=== PATIENT | female | born 1950 | race Asian ===

== ENCOUNTER → 2017-02-01 | Outpatient (CLI) | payer OTHER | LOC: BMCIMAGING 16:00 | PROVIDERS: ATTEND Internal Medicine | DX: Z03.89 Encounter for observation for other suspected diseases and conditions ruled out (principal) ==

== ENCOUNTER 2019-03-22 17:47 | Emergency (ER) | payer OTHER, MEDICARE ==
--- NOTE | 2019-03-22 18:34 | EDPHY ---
H & P Stated Complaint: multiple various & changing: R facial tight, R arm tingling, bilat feet swe Source: Patient Exam Limitations: No limitations - Medical/Surgical History Hx Asthma: Yes Hx Chronic Respiratory Disease: No Hx Diabetes: Yes Hx Cardiac Disease: No Hx Renal Disease: No Hx Cirrhosis: Yes Hx Alcoholism: No Hx HIV/AIDS: No Hx Splenectomy or Spleen Trauma: No Other PMH: DMII (non-insulin), ROSEMARIE'S, TIAs, JAW SURGERY, PARTIAL HYSTERECTOMY, COLON RESECTION FOR DIVERTICULITIS, PTSD & DEPRESSION, FIBROMYALGIA, CHRONIC FATIGUE, HTN, depression - Social History Smoking Status: Never smoked Time Seen by Provider: 03/22/19 18:34 HPI/ROS: HPI: This is a 68 year old female who presents with Chief Complaint: Vaccine reaction Location: Body Quality: Vaccine reaction Duration: Several days Signs and Symptoms: no shortness of breath at rest, no shortness of breath on exertion, no cough, no chest pain, no palpitations, no lower extremity edema, no wheezing, no orthopnea, no paroxysmal nocturnal dyspnea, no fever, no injury/ trauma, no hemoptysis, no carpal pedal spasms Timing: Gradual onset, constant Severity: Moderate Context: Patient presents with multiple various & changing complaints since she received her pneumococcal vaccine on Saturday, approximately 2 days ago. She complains of a local reaction in her left upper arm where the vaccine was administrated. She complains that the left upper arm is tight and swollen. She denies any redness, warmth, discharge. She reports that she feels pain in her left upper arm. She also complains that her right side of her face feels tight and bilateral feet are swelling. She is requesting that her "lymphatic system being tested." She denies any fever, neck stiffness, chest pain, shortness of breath, recent long distance travel. Patient reports that she always has "low-sodium." Modifying Factors: Ice application for the last 48 hr Comment: ROS: A comprehensive 10 system review of systems is otherwise negative aside from elements mentioned in the history of present illness. MEDICAL/SURGICAL/SOCIAL HISTORY: Medical history: DMII (non-insulin), ROSEMARIE'S, TIAs, PTSD & DEPRESSION, FIBROMYALGIA, CHRONIC FATIGUE, HTN, chronic hyponatremia Surgical history: JAW SURGERY, PARTIAL HYSTERECTOMY, COLON RESECTION FOR DIVERTICULITIS Social history: Never smoked, retired. CONSTITUTIONAL: Extremely well-appearing [place] elderly female, son at bedside , awake and alert, no obvious distress HEENT: Atraumatic and normocephalic, PERRL, EOMI. Wearing glasses. Nares patent; no rhinorrhea; no nasal mucosal edema. Tympanic membranes clear. Oropharynx clear, no exudate and moist pink mucosa. Airway patent. No lymphadenopathy. No meningismus. Cardiovascular: Normal S1/S2, regular rate, regular rhythm, without murmur rub or gallop. PULMONARY/CHEST: Symmetrical and nontender. Clear to auscultation bilaterally. Good air movement. No accessory muscle usage. ABDOMEN: Soft, nondistended, nontender, no rebound, no guarding, no peritoneal signs, no masses or organomegaly. No CVAT. EXTREMITIES: 2/2 pulses, strength 5/5, left upper arm is the same size is a right upper arm; no erythema, warmth, tenderness appreciated. Left SHOULDER: Arc test abduction to 180, abduction to 45, horizontal flexion 130, horizontal extension to 45, deltoid strength 5/5. No pain with Neer test/ Francis test (impingement). No Tenderness to palpation over AC joint. no clavicle deformity appreciated. no deformities, no clubbing, no cyanosis or edema. NEUROLOGICAL: no focal neuro deficits. GCS 15. Cranial nerves 2-12 grossly intact. Normal Romberg testing. No pronator drift. SKIN: Warm and dry, no erythema. no rash. Good capillary refill. (Yaritza Kong) Constitutional: Initial Vital Signs Temperature (C) 36.7 C 03/22/19 17:54 Heart Rate 78 03/22/19 17:54 Respiratory Rate 16 03/22/19 17:54 Blood Pressure 153/80 H 03/22/19 17:54 O2 Sat (%) 97 03/22/19 17:54 O2 Delivery Mode Room Air Allergies/Adverse Reactions: Influenza Virus Vaccines [Influenza Virus Vaccine] Allergy (Severe, Verified 05/11 14:42) Swelling/neck,face,throat Penicillins Allergy (Severe, Verified 08/03/15 14:42) Hives Tetanus Toxoid,Fl *RETIRED-07/07/12 [Tetanus Toxoid,Fluid] Allergy (Severe, Verified 08/03/15 14:42) Swelling/neck,face,throat iodine Allergy (Verified 12/07/15 14:22) Anaphylaxis pneumococcal vaccine Allergy (Verified 03/22/19 17:50) Home Medications: Medication Instructions Recorded Levothyroxine [Synthroid 125 mcg 125 mcg PO Q2D@06 12/07/15 (*)] Magnesium Oxide [Magnesium Oxide 400 mg PO DAILY 12/07/15 400 mg (*)] Glimepiride [Amaryl 2 MG (*)] 4 mg PO BIDMEAL #0 tab 12/09/15 Metoprolol Succinate Xr [Toprol Xl 25 mg PO DAILY #0 tab 12/09/15 25 mg (*)] [place]-3 Fatty Acids [Fish Oil 1000 1,000 mg PO DAILY #0 cap 12/09/15 mg (*)] Propranolol HCl [Inderal 10mg (*)] 10 mg PO HS #0 tab 12/09/15 Fluticasone/Salmeter 100/50Mcg 2 - 3 puffs IH BID 10/19/16 [Advair 100/50 (*)] Levothyroxine [Synthroid 112 mcg 112 mcg PO Q2D@10/19/16 (*)] Sitagliptin Phos/Metformin HCl 1 each PO BID 10/19/16 [Janumet 50-1,000 mg Tablet] ALPRAZolam [Xanax 0.25 MG (*)] 0.25 mg PO DAILY PRN #30 tab 10/20/16 Albuterol [Proventil Inhaler HFA 2 - 3 puffs IH BID #1 mdi 10/20/16 (*)] Albuterol [Proventil Neb] 3 ml IH QID PRN #100 deyvial 10/20/16 Clopidogrel Bisulfate [Plavix] 75 mg PO DAILY #30 tablet 10/20/16 Diclofenac Sodium 1% [Voltaren Gel 1 pau TP DAILY PRN #0 tube 10/20/16 (*)] Diclofenac Sodium [Voltaren Gel 1 pau TP DAILY PRN #1 tube 10/20/16 (*)] Escitalopram Oxalate [Lexapro] 5 mg PO DAILY #30 tablet 10/20/16 Lisinopril 5 mg PO DAILY #30 tablet 10/20/16 Nebulizer and Compressor [Comp-Air 1 each MC DAILY #1 each 10/20/16 Nebulizer System] Nitroglycerin 0.3 mg SL DAILY PRN #20 tab.subl 10/20/16 clonazePAM [Clonazepam] 0.25 mg PO DAILY PRN #30 tab.rapdis 10/20/16 Medical Decision Making - Diagnostics Imaging Results: Imaging Impressions Extremity Venous Study 03/22/19 18:43 Impression: No evidence of intraluminal thrombus venous system left upper extremity. Findings discussed with Yaritza Kong PAC at 19:46 hour, 03/22/2019. ED Course/Re-evaluation: I also saw this patient in the emergency department. I reviewed the history of pneumococcal vaccine 2 days ago. She tells me she has had tingling to right hand and right leg as well as both feet. She tells me she would like her lymph examined. By my exam she has some tenderness to the left biceps area. Mild erythema. No obvious evidence of abscess clinically. Neurologic exam shows speech to be normal. Cranial nerves intact. There is no pronator drift. [id number] is normal. Gait is normal. (Ru Hardy) Vital signs reviewed and show mildly elevated blood pressure upon arrival. No systemic signs for concern of sepsis or SIRS protocol. Left upper extremity ultrasound ordered as well as IV access and laboratory studies 0: Notified by RN and outside plant technician that patient is refusing laboratory studies and ultrasound. Requesting for physician visit and examination. 0: Dr. Hardy evaluated patient recommends ESR and CRP laboratory studies be added. 1946: Called by radiologist, Dr. Terrazas, who reports left upper extremity ultrasound shows no DVT, no superficial thrombosis, no hematoma, no edema. 2014: Laboratory studies reviewed. Microcytic anemia noted, platelet count 145 K, glucose 267 no signs of DKA, ESR 33, CRP 38, sodium 129 which is a comparable value in September as well as in December of 2016, creatinine 0.5 No signs of neurovascular compromise/tenting of skin/compartment syndrome/ extremities and joints examined above and below area of concern and are neurovascularly intact/cellulitis/abscess. This patient was seen under the supervision of my secondary supervising physician. I evaluated and cared for this patient with attending. (Yaritza Kong) Differential Diagnosis: Differential diagnosis includes but is not limited to DVT, thrombophlebitis, vaccine reaction, cellulitis, abscess. (Yaritza Kong) - Data Points Laboratory Results: Laboratory Results 03/22/19 19:40 03/22/19 19:40 03/22/19 03/22/19 19:40 19:40 WBC 8.79 10^3/uL 10^3/uL (3.80-9.50) RBC 4.17 10^6/uL L 10^6/uL (4.18-5.33) Hgb 11.2 g/dL L g/dL (12.6-16.3) Hct 32.3 % L % (38.0-47.0) MCV 77.5 fL L fL (81.5-99.8) MCH 26.9 pg L pg (27.9-34.1) MCHC 34.7 g/dL g/dL (32.4-36.7) RDW 13.6 % % (11.5-15.2) Plt Count 145 10^3/uL L 10^3/uL (150-400) MPV 11.6 fL fL (8.7-11.7) Neut % (Auto) 64.9 % % (39.3-74.2) Lymph % (Auto) 24.9 % % (15.0-45.0) [place] % (Auto) 7.1 % % (4.5-13.0) Eos % (Auto) 2.5 % % (0.6-7.6) Baso % (Auto) 0.3 % % (0.3-1.7) Nucleat RBC Rel Count 0.0 % % (0.0-0.2) Absolute Neuts (auto) 5.70 10^3/uL 10^3/uL (1.70-6.50) Absolute Lymphs (auto) 2.19 10^3/uL 10^3/uL (1.00-3.00) Absolute Monos (auto) 0.62 10^3/uL 10^3/uL (0.30-0.80) Absolute Eos (auto) 0.22 10^3/uL 10^3/uL (0.03-0.40) Absolute Basos (auto) 0.03 10^3/uL 10^3/uL (0.02-0.10) Absolute Nucleated RBC 0.00 10^3/uL 10^3/uL (0-0.01) Immature Gran % 0.3 % % (0.0-1.1) Immature Gran # 0.03 10^3/uL 10^3/uL (0.00-0.10) ESR 33 MM/HR H MM/HR (0-30) Sodium 129 mEq/L L mEq/L (135-145) Potassium 4.6 mEq/L mEq/L (3.5-5.2) Chloride 95 mEq/L L mEq/L (97-110) Carbon Dioxide 21 mEq/l L mEq/l (22-31) Anion Gap 13 mEq/L mEq/L (6-14) BUN 16 mg/dL mg/dL (7-23) Creatinine 0.5 mg/dL L mg/dL (0.6-1.0) Estimated GFR > 60 Glucose 267 mg/dL H mg/dL (70-100) Calcium 9.2 mg/dL mg/dL (8.5-10.4) Total Bilirubin 0.5 mg/dL mg/dL (0.1-1.4) AST 38 IU/L IU/L (14-46) ALT 43 IU/L IU/L (9-52) Alkaline Phosphatase 124 IU/L IU/L (38-126) C-Reactive Protein 38.7 mg/L H mg/L (<10.0) Total Protein 6.6 g/dL g/dL (6.3-8.2) Albumin 3.7 g/dL g/dL (3.5-5.0) Departure - Departure Disposition: Home, Routine, Self-Care Clinical Impression: Low sodium levels, Microcytic anemia Adverse reaction to pneumococcal vaccine Qualifiers: Encounter type: initial encounter Qualified Code(s): T50.A95A - Adverse effect of other bacterial vaccines, initial encounter Condition: Good Instructions: Pneumococcal Vaccine for Adults (ED), Hyponatremia (ED) Additional Instructions: Please apply warm compresses to your left upper arm for the next 2 days. Consume a minimum of 8-10 glasses of water or electrolyte fluid replacement drinks that include Gatorade, Powerade, Pedialyte. Increased salt intake. Follow-up with primary care provider in the next 3-5 days for repeat laboratory sodium levels. Return to the ER immediately if you experience redness, red streaks, have fevers /chills, flu like symptoms, limited range of motion, or any other symptoms that concern you. Referrals: Magaly Ramos MD [Primary Care Provider] - 2-3 days, if not improved
[2019-03-22 19:55] LABS: PLATELET COUNT 145 10^3/uL (150-400)
[2019-03-22 20:49] VITALS: BP 150/90
== END 2019-03-22 20:47 | disposition home or self-care (01) ==
DX: D64.9 Anemia, unspecified (principal); E87.1 Hypo-osmolality and hyponatremia; T50.A95A Adverse effect of other bacterial vaccines, initial encounter